=== PATIENT | male | born 1965 | race Caucasian/White ===

== ENCOUNTER 2023-10-14 15:50 | Outpatient (RCR) | payer BC ==
[~2023-10-14 15:50] MED LIST: 00186-0370-20 IH; ASPIRIN E.C. 8181 MG PO; BENADRYL ALLERG25 M2 PO; CELEXA 20MG20 MG/TAB PO; CIPRO 500MG TA500 MG PO; ENTRESTO 24 MG1 EACH PO; EPIPEN 2-PAK1 MG/ML INJ; FARXIGA10 PO; FLEXERIL 1010 MG/TAB PO; K-TAB20 PO; LASIX 40MG TABL40 MG PO; LOPRESSOR 550 MG/TAB; OXYGEN NASAL.CANN; PLAVIX 75MG TAB75 MG PO; PREDNISONE 5MG5 MG PO; PREDNISONE10 MG PO; PRINZIDE 12.5 M1 TA1 PO; TESSALON P100 MG/CAP PO; TOPROL XL 50MG50 MG PO; TYLENOL 325MG325 MG PO; TYLENOL 8 HR PO; VENTOLIN0.09 MG IH
== END 2023-10-24 | disposition home or self-care (01) ==
LOC: COL.CR
DX: I27.20 Pulmonary hypertension, unspecified (principal)
CPT/HCPCS: G0239

== ENCOUNTER 2024-02-05 13:10 | Inpatient (IN) | payer BC ==
[~2024-02-05] VITALS: Ht 177.8 cm; Wt 237.0 kg
[2024-02-05] VITALS (21 sets, daily range): BP systolic 115–126; BP diastolic 69–79; PULSE 70–75; TEMP 97.8; O2SAT 90–97
[~2024-02-05 13:10] MED LIST changes: -ENTRESTO 24 MG1 EACH PO; +ENTRESTO 49 MG1 EACH PO
[2024-02-05] MEDS ORDERED: Azithromycin 500 MG in NS 250 ML IV ONE (13:45)
[2024-02-05] MEDS ORDERED: methylPREDNISolone Sod Succ 125 MG/2 ML VIAL IV ONE (13:45)
[2024-02-05] MEDS ORDERED: cefTRIAXone 1 G in Water For Injection,Sterile 10 ML IV ONE (13:45)
[2024-02-05] MEDS ORDERED: Albuterol/Ipratropium 3 MG-0.5 MG/3 ML Neb Soln IH ONE (13:45)
[2024-02-05 13:50] LABS: BASO % 0.4 % (0.0-2.0); EOS # 0.1 K/mm3 (0.0-0.7); EOS % 0.8 % (0.0-4.0); GRAN # 5.7 K/mm3 (1.4-6.5); GRAN % 74.2 % (42.2-75.2); HEMATOCRIT 51.1 % (42.0-52.0); HEMOGLOBIN 14.9 g/dl (13.5-18.0); LYMPH # 1.2 K/mm3 (1.2-3.4); MEAN CELL VOLUME 92 fl (80.0-100.0); MEAN CORPUSCULAR HEMOGLOBIN 27 pg (27-31); MEAN CORPUSCULAR HGB CONC 29 g/dl (33.0-37.0); MEAN PLATELET VOLUME 9.9 fl (7.4-10.4); MONO # 0.7 K/mm3 (0.1-0.6); PLATELET COUNT 270 K/mm3 (130-400); RED BLOOD COUNT 5.57 M/mm3 (4.20-5.60); REDCELL DISTRIBUTION WIDTH-CV 15.4 % (11.5-14.5)
[2024-02-05 14:10] LABS: ALBUMIN 3.4 gm/dL (3.5-5.0); BILIRUBIN,TOTAL 0.6 mg/dL (0.2-1.2); CALCIUM 9.5 mg/dL (8.4-10.2); CREATININE, serum 1.59 mg/dL (0.72-1.25); POTASSIUM 5.1 mmol/L (3.5-4.5); TOTAL PROTEIN 7.5 gm/dL (6.2-8.1)
[2024-02-05 14:52] LABS: ARTERIAL BLD GAS O2 SATURATION 95.6 % (92-100); ARTERIAL BLD GAS TCO2 CT 31.5; ARTERIAL BLOOD GAS BASE EXCESS -1.4 (-2-2); ARTERIAL BLOOD GAS HCO3 29.1 meq/L (22-26); ARTERIAL BLOOD GAS PO2 92.6 mmHg (80-100)
[2024-02-05 14:54] LABS: ARTERIAL BLOOD GAS pH 7.19 (7.35-7.45)
[2024-02-05] MEDS ORDERED: Rocuronium 50 MG/5 ML Multi-Dose VIAL IV ONE (15:15)
[2024-02-05] MEDS ORDERED: Etomidate 20 MG/10 ML VIAL IV ONE (15:15)
[2024-02-05 16:25] LABS: ARTERIAL BLD GAS TCO2 CT 24.5; ARTERIAL BLOOD GAS BASE EXCESS -2.1 (-2-2); ARTERIAL BLOOD GAS HCO3 23.2 meq/L (22-26); ARTERIAL BLOOD GAS PO2 89.3 mmHg (80-100); ARTERIAL BLOOD GAS pH 7.36 (7.35-7.45)
[2024-02-05 16:32] LABS: PH 5.5 (5.0-8.5); URINE APPEARANCE CLEAR (CLEAR/HAZY); URINE BLOOD NEGATIVE (NEGATIVE); URINE COLOR Dark Yellow (YELLOW); URINE GLUCOSE 3+ (NEGATIVE); URINE KETONE NEGATIVE (NEGATIVE); URINE NITRATE NEGATIVE (NEGATIVE); URINE PROTEIN(semi-quant) 2+ (NEGATIVE)
[2024-02-05 16:48] LABS: COLLECTION METHOD CLEAN CATCH
[2024-02-05] MEDS ORDERED: Furosemide 40 MG/4 ML VIAL IV SCH (17:15)
[2024-02-05] MEDS ORDERED: Ondansetron 4 MG/2 ML VIAL IV PRN (17:15)
[2024-02-05] MEDS ORDERED: Cefepime 2 G in Water For Injection,Sterile 20 ML IV SCH (17:15)
[2024-02-05] MEDS ORDERED: Albuterol/Ipratropium 3 MG-0.5 MG/3 ML Neb Soln IH PRN (17:15)
[2024-02-05] MEDS ORDERED: dexAMETHasone 10 MG/ML VIAL IV SCH (17:15)
[2024-02-05] MEDS ORDERED: ALDACTONE 25MG25 M1 PO (17:48)
[2024-02-05] MEDS ORDERED: KLOR-CON20 MEQ PO (17:49)
[2024-02-05] MEDS ORDERED: TESSALON P100 MG/CAP PO (17:51)
[2024-02-05] MEDS ORDERED: BREZTRI AEROS10.7 GM IH (17:52)
[2024-02-05] MEDS ORDERED: Budesonide/Glycopyrrolate/Formoterol **** subs to Budesonide + Umeclid/Vilant IH SCH (17:55)
--- NOTE | 2024-02-05 17:58 | NUR ---
Arrived to the unit from ED. Assisted over to ICU bed and required 5 people due to patient's size. VS stable upon arrival. Patient does not follow commands but does move extremities with discomfort. Will continue to monitor.
[2024-02-05] MEDS ORDERED: Metoprolol Tartrate 5 MG/5 ML VIAL IV SCH (18:00)
[2024-02-05] MEDS ORDERED: Glucagon 1 MG VIAL IM PRN (18:15)
[2024-02-05] MEDS ORDERED: Dextrose (Glucose) 15 GM (4 x 3.75 GM) Chewable TABLET PACK PO PRN (18:15)
[2024-02-05] MEDS ORDERED: Dextrose 50% Water 25 GM/50 ML SYRINGE IV PRN (18:15)
[2024-02-05] MEDS ORDERED: Budesonide Neb Susp 0.5 MG/2 ML AMP IH SCH (19:00)
--- NOTE | 2024-02-05 19:00 | NUR ---
REPORT RECEIVED FROM AMENA BURGOS. PATIENT INTUBATED AND SEDATED. ON PROPOFOL AND FENTANYL VIA CENTRAL LINE. SEE DRIP TITRATION FOR RATE
[2024-02-05] MEDS ORDERED: fentaNYL 100 ML IV SCH (19:30)
--- NOTE | 2024-02-05 19:41 | NUR ---
PT JADIEL VENT SETTINGS, VITALS ARE WNL. ETT IS SECURE. VENT WHEELS ARE LOCKED AND PT REMAINS RESTRIANED BILAT. SPUTUM CULTURE OBTAINED
[2024-02-05] MEDS ORDERED: Albuterol/Ipratropium 3 MG-0.5 MG/3 ML Neb Soln IH SCH (20:00)
[2024-02-05] MEDS ORDERED: Insulin Lispro (HumaLOG) SQ SCH (21:00)
--- NOTE | 2024-02-05 22:15 | NUR ---
FIO2 TITRATED TO 70%, DUE TO PT DESAT 88%.
[2024-02-06] VITALS (460 sets, daily range): BP systolic 76–165; BP diastolic 37–98; PULSE 68–89; TEMP 98.1–98.8; O2SAT 89–100
[2024-02-06] MEDS ORDERED: Albuterol/Ipratropium 3 MG-0.5 MG/3 ML Neb Soln IH SCH
--- NOTE | 2024-02-06 00:09 | NUR ---
PT TITRATED TO 65%, PT JADIEL WELL.
[2024-02-06 04:39] LABS: HEMOGLOBIN 13.6 g/dl (13.5-18.0); MEAN CORPUSCULAR HEMOGLOBIN 26 pg (27-31); MEAN CORPUSCULAR HGB CONC 31 g/dl (33.0-37.0); MEAN PLATELET VOLUME 10.2 fl (7.4-10.4); PLATELET COUNT 239 K/mm3 (130-400); REDCELL DISTRIBUTION WIDTH-CV 14.7 % (11.5-14.5)
[2024-02-06 04:41] LABS: INR 1.4 (0.8-3.0); PROTHROMBIN TIME 15.2 SECONDS (9.7-12.8)
[2024-02-06 04:44] LABS: MEAN CELL VOLUME 85 fl (80.0-100.0)
[2024-02-06 04:48] LABS: ARTERIAL BLD GAS O2 SATURATION 96.5 % (92-100); ARTERIAL BLD GAS TCO2 CT 24.2; ARTERIAL BLOOD GAS BASE EXCESS 0.8 (-2-2); ARTERIAL BLOOD GAS HCO3 23.3 meq/L (22-26); ARTERIAL BLOOD GAS PCO2 31.4 mmHg (35-45); ARTERIAL BLOOD GAS PO2 82.2 mmHg (80-100); ARTERIAL BLOOD GAS pH 7.49 (7.35-7.45)
[2024-02-06 04:51] LABS: ALBUMIN 2.9 gm/dL (3.5-5.0); BILIRUBIN,TOTAL 1.1 mg/dL (0.2-1.2); CREATININE, serum 1.6 mg/dL (0.72-1.25); POTASSIUM 4.3 mmol/L (3.5-4.5); TOTAL PROTEIN 5.9 gm/dL (6.2-8.1)
[2024-02-06 05:31] LABS: BAND 5 % (0-10); LYMPHOCYTE 5 % (20.0-51.0); NEUTROPHILS 87 % (42.0-75.2); PLATELET ESTIMATE NORMAL (NORMAL)
--- NOTE | 2024-02-06 07:30 | NUR ---
Head to toe assessment complete. Pt easily awakens with verbal or tactile stimulation - initially pt opening eyes and follows commands, then pt became restless. Elsa ([id number]) called in - update provided - all questions answered. Lines and tubes traced and stable.
[2024-02-06] MEDS ORDERED: Umeclidinium/Vilanterol 62.5-25 MCG INHALATION/INHALER IH SCH (09:00)
--- NOTE | 2024-02-06 10:36 | NUR ---
tea plantation worker spoke with patient's daughter in law, Elsa Casey [phone]. Elsa states that patient privately pays for BCBS and that Dr Lonnie Bess's office has a copy. Elsa states they cannot find patients BCBS card. Elsa stated that patient will need rehab. Worker provided education acute and skilled rehab and how it is paid. Elsa states that her has business power of estate attorney and access to bank account data. Worker gave [employer]mu Hunter (financial counselors number) and requested that she call [employer] and secure bank information for medicaid application, as that would be the payor source for nursing facility care, if needed. Worker collaborated with patient's executive secretary social welfare, Aracelis regarding the above information.
--- NOTE | 2024-02-06 10:45 | NUR ---
castables worker met with pt's son/DPOA-HC, Melecio [phone] to discuss intake and discharge planning. Melecio reports he and his , Laverne are DPOA-HC. SW verified copy on file. He reports patient lives alone in [place], but previously lived with Melecio and his family in [place] with Home Health services. Melecio states pt sees Dr. Emery and obtains medications from [facility] with no noted difficulity; he reports pt always finds a way even when they are expensive. He reports pt as having FWW, cane, and oxygen for 24 hrs/day, but does not use it and did not know the company. Melecio went on to express concerns regarding pt's living situation and needing rehab. He informed SW that the home is a hoarding situation with mold, bugs, animal feces (animals removed), and rotten food. Melecio states pt is unable to shower on his own and this is only done when Melecio is able to assist and this is hard due to pt's weight. He reports pt is only showered about once a week, if that, and it is not sufficient. He states pt has declining health, mobility issues, and is unsafe in the home. Son reports pt cannot move around the home well due to the clutter and usually does not make it to the bathroom in an adequate amount of time. He uses adult diapers and does not change them often enough so he is exposed to his own incontinences. Son states pt typically sits on the recliner in the home and has food items within reach there as he is unable to cook. He informs SW the only thing he can do independently is get dressed. Melecio reports he comes over many times a week, but this care is not enough and he is the only family nearby able and willing to help. Melecio reports things as better when pt lived with him and participated with . He states pt is resistive to help cleaning the home and it is only day about once a year, each time pt is in the hospital is all pt allows. SW discussed PT/OT seeing patient when able and making reccomendations likely for SNF vs LTC. Melecio reports he thinks pt pays into an insurance, but is unsure what it is called or where to locate it. SW advised she notified president financial institution, [employer] to work with them to complete FAA/Medicaid application. Melecio was agreeable and even stated pt was tasked to work on the Medicaid application, but he does not know if it was ever done. LUCIE advised they will likely need to work to obtain bank statements and this can take some time. LUCIE discussed if patient was able to return with Melecio. Melecio reports he recently had an daughter and there are no rooms, but worst case scenario, he "would make it work." LUCIE advised she would follow along for any needs and provided phone number. LUCIE spoke with [employer], president financial institution regarding self pay status. She reports she will look into this. LUCIE made APS intake [id number] due to self neglect, unsafe living situation, non-compliance with medical reccs, and inability to care for self. LUCIE spoke with Dr. Avery and had PT/OT orders placed. LUCIE left voicemail to [facility] on [facility]ging contactRee regarding information on waiver services for pt and family need. PT/OT pending as pt is intubated Discharge Plan: TBD, likely LTC vs SNF
--- NOTE | 2024-02-06 13:39 | NUR ---
electrical line worker recieved a call from [facility] on Aging, Ree returning call regarding waivers. She advised the Frail/Elderly waiver would not apply as all criterias are needed and pt is under 65. She advised there is a physical disability waiver for ages 16-64, but there is a year to two year waiting list. She reports the criteria as: 6 months or less to live, active APS report, and likely to end up in a care home past 3 months to escalate services to transition back to the community. She informed SW that morbid obesity could qualify as a physical disability if he was recieving SSDI. LUCIE was unsure at this time, but does not feel pt meets these criterias at this time. No active APS case open, not yet projected to be in a care home, and living with son would qualify as having a caregiver.
[2024-02-06] MEDS ORDERED: Azithromycin 500 MG in NS 250 ML IV SCH (14:00)
[2024-02-06 14:34] LABS: ARTERIAL BLD GAS O2 SATURATION 94.9 % (92-100); ARTERIAL BLD GAS TCO2 CT 26.6; ARTERIAL BLOOD GAS HCO3 25.4 meq/L (22-26); ARTERIAL BLOOD GAS PCO2 39.8 mmHg (35-45); ARTERIAL BLOOD GAS PO2 78.2 mmHg (80-100); ARTERIAL BLOOD GAS pH 7.42 (7.35-7.45)
--- NOTE | 2024-02-06 16:13 | NUR ---
hand worker spoke with Pham Rodrigues, screening representative with [facility] facilities to discuss patient's weight status as a barrier if needing SNF/LTC. She reports [facility] not being able to accept if the wheelchair used is 26 inches or bigger as that is the size of their doorway. She informed SW that they [facility] could potentially be more suitable. She suggests waiting until pt is extubated and more stable before sending referral. Discharge Plan: [email or web address]
--- NOTE | 2024-02-06 17:00 | NUR ---
Bedside report and handoff performed with AMENA Dowling
--- NOTE | 2024-02-06 19:00 | NUR ---
REPORT RECEIVED FROM AMENA SUAREZ. PATIENT INTUBATED AND SEDATED WITH LEVOPHED ON STANDBY. SEE DRIP TITRATION FOR SHIFT CHANGE RATES. PLANS FOR BREATHING TRIAL TOMORROW
[2024-02-07] VITALS (585 sets, daily range): BP systolic 79–121; BP diastolic 39–70; PULSE 71–95; TEMP 97.8–98.8; O2SAT 52–100
[2024-02-07 04:48] LABS: BASO % 0.1 % (0.0-2.0); GRAN # 10.4 K/mm3 (1.4-6.5); GRAN % 86.5 % (42.2-75.2); HEMATOCRIT 42.2 % (42.0-52.0); HEMOGLOBIN 13.6 g/dl (13.5-18.0); LYMPH # 0.7 K/mm3 (1.2-3.4); LYMPH % 5.9 % (20.0-51.0); MEAN CELL VOLUME 84 fl (80.0-100.0); MEAN CORPUSCULAR HEMOGLOBIN 27 pg (27-31); MEAN CORPUSCULAR HGB CONC 32 g/dl (33.0-37.0); MEAN PLATELET VOLUME 10.1 fl (7.4-10.4); MONO # 0.9 K/mm3 (0.1-0.6); MONO % 7.2 % (1.7-9.3); PLATELET COUNT 268 K/mm3 (130-400); RED BLOOD COUNT 5.05 M/mm3 (4.20-5.60); REDCELL DISTRIBUTION WIDTH-CV 14.7 % (11.5-14.5)
[2024-02-07 04:54] LABS: INR 1.3 (0.8-3.0); PROTHROMBIN TIME 14.1 SECONDS (9.7-12.8)
[2024-02-07 05:12] LABS: ALBUMIN 2.7 gm/dL (3.5-5.0); BILIRUBIN,TOTAL 0.9 mg/dL (0.2-1.2); CALCIUM 8.7 mg/dL (8.4-10.2); CREATININE, serum 1.65 mg/dL (0.72-1.25); POTASSIUM 4.3 mmol/L (3.5-4.5); TOTAL PROTEIN 5.7 gm/dL (6.2-8.1)
[2024-02-07 05:48] LABS: ARTERIAL BLOOD GAS BASE EXCESS 5.4 (-2-2); ARTERIAL BLOOD GAS HCO3 27.9 meq/L (22-26); ARTERIAL BLOOD GAS PCO2 34.5 mmHg (35-45); ARTERIAL BLOOD GAS PO2 90.8 mmHg (80-100); ARTERIAL BLOOD GAS pH 7.53 (7.35-7.45)
--- NOTE | 2024-02-07 08:02 | NUR ---
PATIENT IS ON VENTILATOR, ETT TUBE AT 24 CM AT THE TEETH, 30% FIO2, 525 TIDAL, 18 RR, AND 5 PEEP. SEDATION AT 5 ML/HR FENTANYL, 69.6 ML/HR OF PROPOFOL, LEVOPHED AT 8.7 ML/HR. ALL FLUIDS INFUSING WITHOUT COMPLICATION, EPPERSON IS DRAINING CLEAR ISAMAR URINE, 300 ML AT 08 THIS MORNING. FOLLOWS SOME COMMANDS, PUPILS 2MM, REACTIVE, EQUAL AT THIS TIME. AFEBRILE, BLOOD PRESSURE 104/59, 89 HR, 99% O2 SATURATION. PATIENT APPEARS TO BE RESTING, EYES CLOSED UNTIL PROPMPTED, LUNGS SOUNDS ARE DISTANT, DIMINISHED IN THE BASES, CLEAR UPPER LOBES. WILL CONTINUE TO MONITOR FOR SIGNIFICANT CHAGNES.
--- NOTE | 2024-02-07 13:22 | NUR ---
PATIENT WAS EXTUBATED AT 1255 ON 02/07/24. RT SUCTIONED ORALLY AND INLINE BEFORE EXTUBATION. PATIENT IS ON 5LPM WITH 96% O2 SATURATION. PATIENT IS RESTING COMFORTABLY AND TALKING WITH FAMILY.
[2024-02-07] MEDS ORDERED: Citalopram 20 MG TAB PO SCH (15:42)
--- NOTE | 2024-02-07 17:54 | NUR ---
WEANING TRIAL STARTED AT 1030, CPAP SETTINGS WERE UNSUCCESSFUL, THEREFORE WE SWITCHED TO SIMV WITH LOWERED SETTINGS. WITHIN TWO HOURS, PT WAS ABLE TO TAKE EFFECTIVE SPONTANEOUS BREATHES WITHOUT COMPLICATION AND WE WERE ABLE TO EXTUBATE HIM AT 1255. PATIENT FOLLOWED COMMANDS APPROPRIATELY, NO SEDATION ON BOARD. AT THIS TIME HE IS DRINKING, EATING AND SWALLOWING WITHOUT DIFFICULTY. WILL CONTINUE TO EVALUATE BREATHING EFFORTS AND O2 SATURATION LEVELS.
[2024-02-07] MEDS ORDERED: LORazepam 0.5 MG TAB PO ONE (20:45)
--- NOTE | 2024-02-07 20:46 | NUR ---
PT RESTING COMFORTABLY IN BED, DENIES PAIN. IS ABLE TO REPOSITION SELF IN BED USING TRAPEZE OVER BED. CURRENTLY ON 6L O2 VIA NC, ENCOURAGED TO PRACTICE DEEP BREATHING. PROVIDER WANTS PT TO USE BIPAP OVER NIGHT, PT HAS EXPRESSED CONCERN ABOUT MACHINE. DID NOT TOLERATE PREVIOUSLY, ASKED FOR SOMETHING TO HELP WITH ANXIETY. ORDER RECEIVED FOR ATIVAN 0.5 MG TIMES ONE, PT AGREEABLE TO TRY BIPAP. RT AWARE, WILL NOTIFY WHEN PT READY TO SLEEP.
[2024-02-08] VITALS (871 sets, daily range): BP systolic 102–143; BP diastolic 49–87; PULSE 80–93; TEMP 98–99.5; O2SAT 71–100
[2024-02-08 04:50] LABS: BASO % 0.1 % (0.0-2.0); GRAN # 9.2 K/mm3 (1.4-6.5); GRAN % 84.8 % (42.2-75.2); HEMATOCRIT 43.4 % (42.0-52.0); HEMOGLOBIN 13.5 g/dl (13.5-18.0); LYMPH # 0.7 K/mm3 (1.2-3.4); LYMPH % 6.2 % (20.0-51.0); MEAN CELL VOLUME 87 fl (80.0-100.0); MEAN CORPUSCULAR HEMOGLOBIN 27 pg (27-31); MEAN CORPUSCULAR HGB CONC 31 g/dl (33.0-37.0); MEAN PLATELET VOLUME 10.2 fl (7.4-10.4); MONO # 0.9 K/mm3 (0.1-0.6); MONO % 8.6 % (1.7-9.3); PLATELET COUNT 256 K/mm3 (130-400); RED BLOOD COUNT 5.02 M/mm3 (4.20-5.60)
[2024-02-08 04:57] LABS: INR 1.2 (0.8-3.0); PROTHROMBIN TIME 13.4 SECONDS (9.7-12.8)
[2024-02-08 05:07] LABS: BILIRUBIN,TOTAL 1.1 mg/dL (0.2-1.2); CALCIUM 7.9 mg/dL (8.4-10.2); CREATININE, serum 1.51 mg/dL (0.72-1.25); POTASSIUM 4.6 mmol/L (3.5-4.5); TOTAL PROTEIN 6.2 gm/dL (6.2-8.1)
--- NOTE | 2024-02-08 07:00 | NUR ---
Report recieved from AMENA Dawson. Reviewed overnight events. Pt has no IVF gtts infusing. Labs reviewed. Pt resting in bed with eyes closed. Call light within reach. Will continue with POC.
--- NOTE | 2024-02-08 08:44 | NUR ---
Pt up to chair for breakfast. Pt up with assistance of 2 and walker. PT in room at time of movement. Pt tolerated shift without difficulty. Call light within reach.
[2024-02-08] MEDS ORDERED: diphenhydrAMINE 25 MG CAP PO ONE (10:30)
--- NOTE | 2024-02-08 13:44 | NUR ---
Data: Hospital Supervisor Pastry requested On-call Supervisor Pastry visit this Patient. Patient was in a recliner, trying to adjust it for comfort so that he can nap. Patient was hoping to put in a garden this year, but will now likely plan next year's garden instead. 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 Patient's of cancer in 2013. Assessment: Patient desires a nap. Patient speaks of the loss of his in a manner suggesting that he is both grieving and still in his bereavement process. Plan of Care: Supervisor Pastry requested assistance from the RN in adjusting the chair for Patient's comfort and thus a nap. Supervisor Pastry provided supportive listening and prayer.
--- NOTE | 2024-02-08 18:28 | NUR ---
Pt had uneventful shift. Pt sat up in chair most of day. Up with walker to use commode. When awake pt is on 3L NC and tolerating well. When pt sleeps, placed on 5L open oxy mask. Pt was offered bipap once during shift for nap but pt refused. Call light within reach. Denies any other needs at this time.
--- NOTE | 2024-02-08 20:18 | NUR ---
PT IS RESTING IN THE CHAIR AT THE SIDE OF THE BED. HE IS ALERT AND ORIENTED. ON 5L OXYMASK. A DRAINING EPPERSON CATHETER IS IN PLACE. A RIGHT SUBCLAVIAN CENTRAL LINE AND 2 PERIPHERAL IV SITES. EYE GLASSES IN PLACE. NO COMPLAINTS AT THIS TIME.
[2024-02-09] VITALS (626 sets, daily range): BP systolic 108–132; BP diastolic 65–84; PULSE 68–88; TEMP 97.7–98.3; O2SAT 66–100
--- NOTE | 2024-02-09 01:00 | NUR ---
PLACED PATIENT ON BIPAP
--- NOTE | 2024-02-09 07:59 | NUR ---
PATIENT IS PLEASANT THIS MORNING AND DOES NOT APPEAR TO BE IN DISTRESS OR DISCOMFORT. PATIENT IS ALERT AND ORIENTED AND DENIES ANY PAIN. PATIENT AMBULATED TO RECLINER [facility] ASSIST. CHAIR ALARM IN USE AND CALL LIGHT WITHIN REACH. PATIENT DOES NOT NEED ANYTHING AT THIS TIME.
--- NOTE | 2024-02-09 12:36 | NUR ---
PATIENT VOICED CONCERN WITH RN AND DAIRY TECHNOLOGIST THAT HE FEELS "I DONT KNOW THAT I SHOULD GO HOME YET BECAUSE MY SON IS SUPPOSED TO BE RIPPING UP THE CARPET SOON. IM WORRIED THAT THE DUST IS GOING TO AFFECT MY BREATHING WHEN HE DOES THAT".
--- NOTE | 2024-02-09 15:06 | NUR ---
This SW informed that patient will be able to discharge tomorrow 02/10/2024 when Bipap is set up for home. Nurse informed SW that patient states he has concerns about being discharged home due to cson pulling up carpet which will produce dust and cause patient to be unable to breath efficiently. SW informed nurse that she would pass information on to case management team. SW will continue to follow.
--- NOTE | 2024-02-09 16:39 | NUR ---
Previous plan consisted of patient returning home with bipap set up. SW completed electronic chart reviewed that consisted of physical therapy recommending nursing home. Dr. Avery informed and was not aware of recommendation and house nurse informed as well and plan is for patient to go to medical floor for further assessesment.
--- NOTE | 2024-02-09 18:24 | NUR ---
PATIENT TRANSFERRED TO MEDICAL FLOOR AT THIS TIME. PATIENT REPORT CALLED TO AMENA CHAVEZ, BEFORE TRANSFER. PATIENT AND INSPECTION AND TESTING SUPERVISOR HAD CONVERSATION ABOUT PHYSICAL THERAPY RECOMMENDING SENIOR CARE FOR A LITTLE BIT AND PATIENT AGREED THAT THIS WOULD BE A GOOD IDEA. PATIENT WAS NOT IN DISTRESS UPON TRANSFER. INSPECTION AND TESTING SUPERVISOR HELPED PATIENT SHOWER ON MEDICAL AFTER MOVING TO NEW ROOM.
[2024-02-09] MEDS ORDERED: diphenhydrAMINE 50 MG/ML 1 ML VIAL IV ONE (19:30)
[2024-02-10] VITALS (7 sets, daily range): BP systolic 100–150; BP diastolic 50–82; PULSE 74–106; TEMP 96.7–98.3
[2024-02-10 08:10] LABS: CALCIUM 8.3 mg/dL (8.4-10.2); CREATININE, serum 1.41 mg/dL (0.72-1.25); POTASSIUM 4.8 mmol/L (3.5-4.5)
--- NOTE | 2024-02-10 09:00 | NUR ---
Patient is resting in bed, alert and oriented x 4, denies any pain or discomfort, getting 2L O2 NC. Assessted to the restroom with walker. Linens changed. Assessment completed, no further needs at this time. Call light within reach.
[2024-02-10] MEDS ORDERED: Hydrocortisone 1% Cream 30 GM TUBE TP PRN (09:15)
[2024-02-10] MEDS ORDERED: NS 1,000 ML IV SCH (09:15)
[2024-02-10] MEDS ORDERED: Sodium Polystyrene Sulf Susp 15 GM/60 ML BOTTLE PO SCH (09:30)
--- NOTE | 2024-02-10 11:42 | NUR ---
SW spoke with Pham Rodrigues with [facility] facilities who requested referral documents be faxed to [phone] for review. Discussed [facility] in [place]. Clinicals faxed. Medicare.gov information provided to patient for review for choices. Discussed limited availability due to patient's weight restrictions.
--- NOTE | 2024-02-10 14:55 | NUR ---
SNF referrals sent to the following: [facility] in [place], [facility], [facility], [facility], [facility], [facility], [facility], [facility], [facility], [facility], [facility], [facility], [facility], [facility]. Awaiting responses. Discharge: SNF
--- NOTE | 2024-02-10 15:50 | NUR ---
Received call from [facility] in [place] wanting to verify clinical information from referral. Clinical team is reviewing referral and will contact this SW with decision on acceptance.
[2024-02-11 03:50] VITALS: BP 130/76; PULSE 101; TEMP 98.2
[2024-02-11 06:09] LABS: BASO % 0.1 % (0.0-2.0); GRAN # 5.9 K/mm3 (1.4-6.5); GRAN % 79.1 % (42.2-75.2); HEMATOCRIT 44.2 % (42.0-52.0); HEMOGLOBIN 12.9 g/dl (13.5-18.0); LYMPH # 0.7 K/mm3 (1.2-3.4); LYMPH % 9.9 % (20.0-51.0); MEAN CELL VOLUME 91 fl (80.0-100.0); MEAN CORPUSCULAR HEMOGLOBIN 26 pg (27-31); MEAN CORPUSCULAR HGB CONC 29 g/dl (33.0-37.0); MEAN PLATELET VOLUME 10.1 fl (7.4-10.4); MONO # 0.8 K/mm3 (0.1-0.6); MONO % 10.4 % (1.7-9.3); PLATELET COUNT 222 K/mm3 (130-400); RED BLOOD COUNT 4.88 M/mm3 (4.20-5.60); REDCELL DISTRIBUTION WIDTH-CV 14.6 % (11.5-14.5)
[2024-02-11 06:28] LABS: CALCIUM 8.1 mg/dL (8.4-10.2); CREATININE, serum 1.12 mg/dL (0.72-1.25); POTASSIUM 4.5 mmol/L (3.5-4.5)
[2024-02-11 07:36] VITALS: BP 121/74; PULSE 79; TEMP 98.5
--- NOTE | 2024-02-11 08:51 | NUR ---
pt assisted to bathroom by student nurses. void and bowel movement normal. student nurse noted redness to innergluteal fold while performing vitaly care.
[2024-02-11] MEDS ORDERED: dexAMETHasone 4 MG TAB PO SCH (09:00)
--- NOTE | 2024-02-11 09:41 | NUR ---
BIPAP ON NOW REQUESTED BY PATIENT.
--- NOTE | 2024-02-11 11:05 | NUR ---
PATIENT LEAK OF 90, ADJUSTED MASK TO LEAK OF 19.
[2024-02-11 12:58] VITALS: BP 106/65; PULSE 94; TEMP 97.8
--- NOTE | 2024-02-11 14:41 | NUR ---
feed elevator worker left a voicemail for [facility], [facility] in [place], [facility] in [place] and [facility] in [place]. LUCIE was notified [facility], [facility], [facility], [facility], [facility] and [facility] is unable to accept. LUCIE faxed Medicaid Uday to [facility]. LUCIE attempted to contact [facility] in [place], no response. LUCIE contacted [facility] and they are willing to review the referral and expressed they can take patients under 600 lbs. LUCIE faxed referral to this facility.
--- NOTE | 2024-02-11 16:04 | NUR ---
SW contacted [facility] and they expressed they would review the information and get back with the social insurance adviser. SW faxed referral. Update on Referral: Pending review: [facility], [facility], [facility], [facility], [facility], [facility] Voicemail: [facility], [place], [facility], [facility] [place], [facility], [facility], [facility], [facility] [place], [facility] [place], [facility] [place], [facility] in [place] Unable to accept: [facility], [facility], [facility], [facility] in [place], [facility], [facility], [facility], [facility], [facility] in [place]
[2024-02-11 16:06] VITALS: BP 138/81; PULSE 87; TEMP 98.2
--- NOTE | 2024-02-11 16:31 | NUR ---
Multiple phone calls made to SNF for rehab placement without success. SW called pt's daughter in law Elsa to request a family meeting tomorrow for discharge planning discussion with patient. Meeting scheduled for 814 tomorrow.
[2024-02-11 20:10] VITALS: BP 135/74; PULSE 90; TEMP 97.5
[2024-02-11 23:28] VITALS: BP 157/74; PULSE 72; TEMP 98.5
[2024-02-12 03:26] VITALS: BP 157/74; PULSE 72; TEMP 98.8
[2024-02-12 07:14] LABS: BASO % 0.1 % (0.0-2.0); EOS % 0.5 % (0.0-4.0); GRAN # 5.4 K/mm3 (1.4-6.5); GRAN % 71.9 % (42.2-75.2); HEMATOCRIT 42.6 % (42.0-52.0); HEMOGLOBIN 12.8 g/dl (13.5-18.0); LYMPH # 1.1 K/mm3 (1.2-3.4); LYMPH % 13.9 % (20.0-51.0); MEAN CELL VOLUME 89 fl (80.0-100.0); MEAN CORPUSCULAR HEMOGLOBIN 27 pg (27-31); MEAN CORPUSCULAR HGB CONC 30 g/dl (33.0-37.0); MEAN PLATELET VOLUME 10.1 fl (7.4-10.4); MONO % 13.1 % (1.7-9.3); PLATELET COUNT 208 K/mm3 (130-400); RED BLOOD COUNT 4.81 M/mm3 (4.20-5.60); REDCELL DISTRIBUTION WIDTH-CV 14.2 % (11.5-14.5)
[2024-02-12 07:43] LABS: CALCIUM 9.1 mg/dL (8.4-10.2); CREATININE, serum 0.99 mg/dL (0.72-1.25); POTASSIUM 4.5 mmol/L (3.5-4.5)
[2024-02-12 07:44] VITALS: BP 136/80; PULSE 89; TEMP 97.9
[2024-02-12] MEDS ORDERED: dexAMETHasone 4 MG TAB PO SCH (09:00)
[2024-02-12 09:32] LABS: ARTERIAL BLOOD GAS PCO2 62.7 mmHg (35-45); ARTERIAL BLOOD GAS pH 7.32 (7.35-7.45)
[2024-02-12 09:33] LABS: ARTERIAL BLD GAS O2 SATURATION 96.1 % (92-100); ARTERIAL BLD GAS TCO2 CT 18.7; ARTERIAL BLOOD GAS BASE EXCESS 3.9 (-2-2); ARTERIAL BLOOD GAS HCO3 31.8 meq/L (22-26); ARTERIAL BLOOD GAS PO2 77.7 mmHg (80-100)
--- NOTE | 2024-02-12 09:45 | NUR ---
SW attended rounds with interdisciplinary team. Patient reported to have not worn bipap overnight resulting in increased confusion today. Patient not stable for dc today. Discussed possible LTACH referral with attending who is in agreement. CM Director spoke with daughter in law who agreed to referrals being sent. This SW [facility] with [facility] at [facility], they are reviewing for possible acceptance. Referral emailed to Richard at [facility]. Awaiting review. Discharge Plan: IPR vs LTACH
--- NOTE | 2024-02-12 10:14 | NUR ---
Received call from Colette with [facility] asking for updated progress notes and therapy notes. Notes faxed for review. Received call from Richard with [facility] stating patient appropriate for admission and he is submitted for authorization with BCBS which could be 24-48 hours.
[2024-02-12 12:00] VITALS: BP 143/77; PULSE 78; TEMP 98.6
--- NOTE | 2024-02-12 12:36 | NUR ---
Received call from Colette with [facility] stating patient is still being reviewed for admission. Colette stated she has spoken with patient's son regarding plan for post rehab care. Received call from Pham with [facility] stating that pt is accepted clinically but will require authorization. Informed Pham that patient is awaiting auth for LTACH at this time. This SW spoke with patient's daughter in law Laverne to update on referrals. Informed that we are waiting on insurance authorization for LTACH with [facility] and that [facility] is continuing to review clinicals. Laverne states that they are hopeful that patient will be able to return home after rehab.
[2024-02-12 16:00] VITALS: BP 137/85; PULSE 87; TEMP 97.9
[2024-02-12 19:14] VITALS: BP 130/73; PULSE 88; TEMP 97.6
--- NOTE | 2024-02-12 22:40 | NUR ---
Patient resting in bed. Denies any pain or needs at this time. Assessment complete. Right IJ flushes easily with good blood return in all ports, CDI. Call light and personal items in reach. Bed in low position.
[2024-02-13] VITALS: BP 118/73; PULSE 78; TEMP 97.5
[2024-02-13 04:39] VITALS: BP 130/76; PULSE 80; TEMP 98.2
--- NOTE | 2024-02-13 05:50 | NUR ---
Patient resting in bed. Denies any pain. States he feels a little itchy, lotion applied to back and states that made it go away. Patient wore Bipap over night. No other changes over night. Call light and personal items in reach. Bed in low position.
[2024-02-13 06:52] LABS: BASO % 0.1 % (0.0-2.0); EOS # 0.1 K/mm3 (0.0-0.7); GRAN % 71.6 % (42.2-75.2); HEMATOCRIT 42.5 % (42.0-52.0); HEMOGLOBIN 12.6 g/dl (13.5-18.0); LYMPH % 14.5 % (20.0-51.0); MEAN CELL VOLUME 90 fl (80.0-100.0); MEAN CORPUSCULAR HEMOGLOBIN 27 pg (27-31); MEAN CORPUSCULAR HGB CONC 30 g/dl (33.0-37.0); MEAN PLATELET VOLUME 10.3 fl (7.4-10.4); MONO # 0.9 K/mm3 (0.1-0.6); MONO % 12.2 % (1.7-9.3); PLATELET COUNT 201 K/mm3 (130-400); RED BLOOD COUNT 4.72 M/mm3 (4.20-5.60); REDCELL DISTRIBUTION WIDTH-CV 14.2 % (11.5-14.5)
[2024-02-13 07:10] LABS: CALCIUM 8.6 mg/dL (8.4-10.2); CREATININE, serum 0.96 mg/dL (0.72-1.25); POTASSIUM 4.7 mmol/L (3.5-4.5)
[2024-02-13 08:14] VITALS: BP 137/70; PULSE 84; TEMP 98.1
--- NOTE | 2024-02-13 08:57 | NUR ---
Patient is alert and oriented, answering all questions appropriately while watching television. Patient has ordered breakfast and wishes to wait for toileting, until after breakfast. VSS and patient wishes to ambulate in the halls after taking morning medications. BLE edema at +1 and urine is noted to be red tinged, no complaints of dyspnea and patient breath sounds are clear in all nails.
--- NOTE | 2024-02-13 08:59 | NUR ---
On 02/12/24, elementary school social worker contacted patient's daughter in law, Elsa and advised of patient's condition and need for Jail Acute Hospitalization, as determined by medical team during rounds. Worker provided option within 100 mile radius of [facility]. Elsa voiced understanding of the above and states she will call her spouse and inform. A referral was given to [facility] states they have submitted insurance Authorization and it could take 2-3 days for the decision. Patient has confusion this date.
[2024-02-13 11:16] VITALS: BP 148/79; PULSE 84; TEMP 97.9
--- NOTE | 2024-02-13 14:36 | NUR ---
Motor Coach Bus Driver spoke with Richard, Clinical Liason at [facility] who advised patient's insurance auth is still pending. Richard met with patient at bedside today. LUCIE contacted [facility] and they have never received an order for CPAP on patient. LUCIE left a message with patient's PCP office to inquire about a sleep study. LUCIE also was contacted by APS LUCIE, Vicky Salazar (ph#[phone]) who advised she went to patient's home and there is a notice to vacate on the door citing residence was unfit for human habitation. Vicky has an open case and met with patient at bedside yesterday, with family on speakerphone.
[2024-02-13 15:32] VITALS: BP 147/81; PULSE 80; TEMP 98.2
--- NOTE | 2024-02-13 16:24 | NUR ---
patient resting in recliner. states no concerns at this time. call light within reach.
[2024-02-13 18:57] VITALS: BP 171/79; PULSE 88; TEMP 98.6
[2024-02-14] VITALS (7 sets, daily range): BP systolic 126–176; BP diastolic 69–84; PULSE 72–86; TEMP 97.6–98.4
--- NOTE | 2024-02-14 02:03 | NUR ---
PT ALERT AND ORIENTED, VSS. VERY PLEASANT MALE WHO SAYS HE FEELING BETTER AND HAPPY TO NO LONGER BE INTUBATED, HOWEVER FEELS THOUGH HE IS "LEARNNING EVERTHING ALL OVER AGAIN". AAT THE START OF SHIFT MENTIONED THAT HE HAD BEEN IN THE RECLINER ALL DAY AND WAS READY TO GET INTO THE BED, THE PT TRANSFERS WELL WITH SBY ASSSIST WITH FWW. MILD SOA WHEN TRANSFERING, TOLERATED/RECOVERED WELL AFTERWARD. CURRENTLY ON 3L NC, BASELINE RA. SHIFT ASSESSMENT COMPLETE MEDICATED PER EMAR. TRIPLE LUME IJ CDI, FLUSHING WELL. NO PAIN REPORTED, DENIES FURTHER NEED AT THIS TIME. CALL LIGHT WITHIN REACH.
[2024-02-14 06:50] LABS: EOS % 0.7 % (0.0-4.0); GRAN % 70.8 % (42.2-75.2); HEMATOCRIT 39.9 % (42.0-52.0); HEMOGLOBIN 11.9 g/dl (13.5-18.0); LYMPH # 0.9 K/mm3 (1.2-3.4); LYMPH % 16.8 % (20.0-51.0); MEAN CELL VOLUME 91 fl (80.0-100.0); MEAN CORPUSCULAR HEMOGLOBIN 27 pg (27-31); MEAN CORPUSCULAR HGB CONC 30 g/dl (33.0-37.0); MEAN PLATELET VOLUME 10.3 fl (7.4-10.4); MONO # 0.6 K/mm3 (0.1-0.6); MONO % 11.3 % (1.7-9.3); PLATELET COUNT 189 K/mm3 (130-400); RED BLOOD COUNT 4.41 M/mm3 (4.20-5.60); REDCELL DISTRIBUTION WIDTH-CV 14.2 % (11.5-14.5)
--- NOTE | 2024-02-14 07:00 | NUR ---
PAITENT ASLEEP, RESTING IN BED. PATIENT BIPAP ON. PATINET AROUSED EASILY TO NAME. CALL LIGHT WITHIN REACH,. PATINET DENIES ANY NEEDS OR COMPLAINTS AT THIS TIME.
[2024-02-14 07:05] LABS: CREATININE, serum 0.88 mg/dL (0.72-1.25); POTASSIUM 4.5 mmol/L (3.5-4.5)
--- NOTE | 2024-02-14 08:46 | NUR ---
Patient is alert and oriented x4 VSS, watching television and RT was in the room during initial assessment. Patient eats breakfast and requests to use restroom. RIJ is intact and dry with presence of scant dried blood. Patient expresses that they are awaiting placement with a care facility for rehabilitation to go home.
--- NOTE | 2024-02-14 09:38 | NUR ---
THIS RN WAS NOTIFIED BY FUNERAL SALES MANAGER THAT PATIENTS URINE HAD A MALODOROUS SMELL, AND HAS DARKENED IN COLOR. PATIENTS URINE COLOR WAS RED/DARK TINGED. UA SENT TO LAB PER MD ORDERS.
[2024-02-14 09:43] LABS: COLLECTION METHOD CLEAN CATCH
[2024-02-14 09:51] LABS: PH 5.5 (5.0-8.5); URINE APPEARANCE CLOUDY (CLEAR/HAZY); URINE BLOOD 3+ (NEGATIVE); URINE COLOR ORANGE (YELLOW); URINE GLUCOSE NEGATIVE (NEGATIVE); URINE KETONE NEGATIVE (NEGATIVE); URINE NITRATE NEGATIVE (NEGATIVE); URINE PROTEIN(semi-quant) 2+ (NEGATIVE)
--- NOTE | 2024-02-14 12:00 | NUR ---
PATIENT AWAKE AND ALERT, SITTING UP IN HIS RECLINER. PATIENT DENIES ANY NEEDS OR COMPLAINTS AT THIS TIME, CALL LIGHT WITHIN REACH.
--- NOTE | 2024-02-14 16:10 | NUR ---
Catcher Helper faxed clinical updates to Richard at [facility]. Insurance Auth still pending. Richard advised patient's plan is only in network with their [place] location. LUCIE updated patient and son, Melecio. Both are in agreement.
--- NOTE | 2024-02-14 18:00 | NUR ---
PATIENT DENEIS ANY NEEDS OR CMOPLAINTS AT THIS TIME. PATIENT IS AWAKE AND ALERT, SITTIGN UP IN RECLINER. CALL LIGHT WTIHIN REACH.
[2024-02-15] MEDS ORDERED: hydrALAZINE 20 MG/ML 1 ML VIAL IV PRN (02:45)
--- NOTE | 2024-02-15 03:26 | NUR ---
Shift assessment completed. Pt is alert and oriented. He is on 3 L O2 via nasal cannula. He denies pain or discomfort at this time. PM medication administered as ordered. Pt denies other needs at this time. Call light left within reach and fall precautions in place.
[2024-02-15 04:05] VITALS: BP 143/86; PULSE 70; TEMP 98.4
[2024-02-15 06:41] LABS: BASO % 0.2 % (0.0-2.0); EOS % 0.7 % (0.0-4.0); GRAN # 3.8 K/mm3 (1.4-6.5); GRAN % 70.2 % (42.2-75.2); HEMATOCRIT 39.3 % (42.0-52.0); HEMOGLOBIN 11.9 g/dl (13.5-18.0); LYMPH % 18.4 % (20.0-51.0); MEAN CELL VOLUME 89 fl (80.0-100.0); MEAN CORPUSCULAR HEMOGLOBIN 27 pg (27-31); MEAN CORPUSCULAR HGB CONC 30 g/dl (33.0-37.0); MEAN PLATELET VOLUME 10.7 fl (7.4-10.4); MONO # 0.6 K/mm3 (0.1-0.6); MONO % 10.1 % (1.7-9.3); PLATELET COUNT 177 K/mm3 (130-400); RED BLOOD COUNT 4.44 M/mm3 (4.20-5.60); REDCELL DISTRIBUTION WIDTH-CV 14.1 % (11.5-14.5)
[2024-02-15 06:52] LABS: CALCIUM 8.5 mg/dL (8.4-10.2); CREATININE, serum 0.87 mg/dL (0.72-1.25); POTASSIUM 4.5 mmol/L (3.5-4.5)
--- NOTE | 2024-02-15 07:05 | NUR ---
PATIENT ASLEEP, RESTING IN BED. BIPAP ON. CALL LIGHT WTIHIN REACH.
[2024-02-15 08:09] VITALS: BP 154/72; PULSE 84; TEMP 98.4
[2024-02-15 11:50] VITALS: BP 141/82; PULSE 67; TEMP 97.4
--- NOTE | 2024-02-15 12:30 | NUR ---
PER NIGHT MULTIMEDIA TECHNICIAN PATIENT IS PAST "FIVE DAY" FOR CENTRAL R JUGLAR LINE. THIS RN SPOKE WITH THE HOSPITALIST REGARDING THIS AND PER THE MD RN MAY REMOVE RIJ IF PIV ACCESS IS PLACED. 2 UNSUCCESFUL ATTEMPTS AT PIV PLACEMENT. PATIENT DENIES ANY NEEDS OR COMPLAINTS AT THIS TIME. RIJ TRIPLE LUMEN PATENT, GOOD BLOOD RETURN AND FLUSHES WELL. CALL LIGHT WITHIN REACH.
[2024-02-15 15:54] VITALS: BP 133/69; PULSE 84; TEMP 97.3
--- NOTE | 2024-02-15 16:00 | NUR ---
PAINET AWAKE AND ALERT, SITTING UP IN THE RECLINER. PATIENT DENIES ANY NEEDS OR COMPLAINTS AT THIS TIME. CALLL LIGHT WITHIN REACH.
[2024-02-15 20:05] VITALS: BP 124/69; PULSE 76; TEMP 98.8
[2024-02-15 22:54] VITALS: BP 129/76; PULSE 74; TEMP 98.3
[2024-02-16 03:16] VITALS: BP 131/68; PULSE 66; TEMP 97.5
[2024-02-16 07:34] LABS: EOS % 0.6 % (0.0-4.0); GRAN # 3.5 K/mm3 (1.4-6.5); GRAN % 65.1 % (42.2-75.2); HEMATOCRIT 39.8 % (42.0-52.0); LYMPH # 1.2 K/mm3 (1.2-3.4); LYMPH % 22.4 % (20.0-51.0); MEAN CELL VOLUME 88 fl (80.0-100.0); MEAN CORPUSCULAR HEMOGLOBIN 27 pg (27-31); MEAN CORPUSCULAR HGB CONC 30 g/dl (33.0-37.0); MEAN PLATELET VOLUME 10.7 fl (7.4-10.4); MONO # 0.6 K/mm3 (0.1-0.6); MONO % 11.5 % (1.7-9.3); PLATELET COUNT 186 K/mm3 (130-400); RED BLOOD COUNT 4.53 M/mm3 (4.20-5.60); REDCELL DISTRIBUTION WIDTH-CV 14.3 % (11.5-14.5)
[2024-02-16 07:51] LABS: CALCIUM 8.4 mg/dL (8.4-10.2); CREATININE, serum 0.82 mg/dL (0.72-1.25); POTASSIUM 4.8 mmol/L (3.5-4.5)
[2024-02-16 08:00] VITALS: BP 128/67; PULSE 70; TEMP 97.9
[2024-02-16] MEDS ORDERED: dexAMETHasone 4 MG TAB PO SCH (09:00)
--- NOTE | 2024-02-16 11:49 | NUR ---
PERIPHERAL IV PLACED TO PATIENT RIGHT HAND BY NURSING SUPERVIOSR. NOW THAT PERIPHERAL IV ACCESS HAS BEEN ESTABLISHED, GAVE VORB FOR PATIENTS RIGHT INTERNAL JUGULAR CENTRAL LINE TO BE REMOVED. TILA IN AGREEMENT TO THIS. PATIENT ASSISTED BACK TO BED FROM RECLINER. PATIENT IS A STANDY BY ASSIST WITH GAIT BELT AND WALKER. CALL LIGHT WITHIN REACH
[2024-02-16 12:02] VITALS: BP 136/79; PULSE 73; TEMP 97.7
--- NOTE | 2024-02-16 12:11 | NUR ---
TILA HAS BLOOD SUGAR CHECKS BID. MD INFORMED PATIENT IS NOT DIABETIC, NO SLIDING SCALE ORDER, AND STEROIDS HAVE BEEN TAPERED DOWN AND ARE PO. PATIENTS BLOOD SUGAR HAS NEVER REACHED GREATER THAN 175. VORB TO DC BLOOD SUGAR CHECKS
--- NOTE | 2024-02-16 13:05 | NUR ---
RIJ REMOVED AT 1248 PER POLICY. PRESSURE HELD UNTIL 1303. GAUZE AND TEGARDERM PLACED. NO CURRENT BLEEDING. PATIENT TOLERATED WELL. PATIENT AWARE FLAT TIME DONE AT 1330. PATIENT LYING FLAT. CALL LIGHT WITHIN REACH.
--- NOTE | 2024-02-16 14:00 | NUR ---
PATIENTS DRESSING TO PREVIOUS CENTRAL SITE IS CDI. PATINET DENIES ANY NEEDS OR COMPLAINTS AT THIS TIME. CALL LIGHT WITHIN REACH.
[2024-02-16 15:40] VITALS: BP 115/66; PULSE 79; TEMP 97.8
--- NOTE | 2024-02-16 17:49 | NUR ---
PATINET AWAKE AND ALERT, SITTING UP IN BED. PATIENT DENIES ANY NEEDS OR COMPLAINTS AT THIS TIME. CALL LIGHT WITHIN REACH. O2 ON.
[2024-02-16 19:04] VITALS: BP 150/84; PULSE 105; TEMP 98.2
[2024-02-16 22:58] VITALS: BP 126/71; PULSE 73; TEMP 98.5
[2024-02-17 03:42] VITALS: BP 129/78; PULSE 76; TEMP 97.5
[2024-02-17 08:14] VITALS: BP 132/74; PULSE 72; TEMP 97.9
--- NOTE | 2024-02-17 09:43 | NUR ---
LUCIE spoke with Richard with [facility] who reported that [facility] does not have bed availablity and [facility] is requesing auth from [employer]. Updated cinicals being faxed for [employer] review. Awaiting decision on auth.
--- NOTE | 2024-02-17 10:10 | NUR ---
RN SUCCESSFUL WITH LAB DRAW FOR MORNING LAB ORDERS. PATIENT TOELRATED WELL.
[2024-02-17 10:34] LABS: EOS # 0.1 K/mm3 (0.0-0.7); EOS % 0.8 % (0.0-4.0); GRAN # 3.6 K/mm3 (1.4-6.5); GRAN % 56.9 % (42.2-75.2); HEMATOCRIT 41.5 % (42.0-52.0); HEMOGLOBIN 12.8 g/dl (13.5-18.0); LYMPH # 1.7 K/mm3 (1.2-3.4); LYMPH % 27.8 % (20.0-51.0); MEAN CELL VOLUME 87 fl (80.0-100.0); MEAN CORPUSCULAR HEMOGLOBIN 27 pg (27-31); MEAN CORPUSCULAR HGB CONC 31 g/dl (33.0-37.0); MEAN PLATELET VOLUME 11.6 fl (7.4-10.4); MONO # 0.9 K/mm3 (0.1-0.6); MONO % 14.2 % (1.7-9.3); PLATELET COUNT 191 K/mm3 (130-400); RED BLOOD COUNT 4.76 M/mm3 (4.20-5.60); REDCELL DISTRIBUTION WIDTH-CV 14.2 % (11.5-14.5)
[2024-02-17 11:16] LABS: CALCIUM 9.2 mg/dL (8.4-10.2); CREATININE, serum 0.82 mg/dL (0.72-1.25); POTASSIUM 4.8 mmol/L (3.5-4.5)
[2024-02-17 12:18] VITALS: BP 119/69; PULSE 78; TEMP 98.2
[2024-02-17 16:01] VITALS: BP 133/70; PULSE 72; TEMP 98.9
--- NOTE | 2024-02-17 18:00 | NUR ---
PATIENT AWAKE AND ALERT, SITTING UP IN THE RECLINER. CALL LIGHT WITHIN REACH, O2 NC AT 2L. PATIENT DENIES ANY NEEEDS OR COMPLAINTS AT THIS TIME.
[2024-02-17 20:20] VITALS: BP 153/81; PULSE 69; TEMP 98.6
[2024-02-18 00:17] VITALS: BP 146/82; PULSE 86; TEMP 98.4
[2024-02-18 04:54] VITALS: BP 128/63; PULSE 90; TEMP 98.5
--- NOTE | 2024-02-18 05:08 | NUR ---
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 DENIES PAIN AT THIS TIME. SHIFT ASSESSMENT COMPLETE, MEDICATED PER EMAR. VERY PLEASANT AND LAURY HISTORIAN AWAITING PLACEMENT. INT TO R HAND PATENT. DENIES FURTHER NEED AT THIS TIME. CALL LIGHT WITHIN REACH.
[2024-02-18 07:34] LABS: EOS % 0.4 % (0.0-4.0); GRAN # 3.8 K/mm3 (1.4-6.5); HEMATOCRIT 41.8 % (42.0-52.0); HEMOGLOBIN 12.8 g/dl (13.5-18.0); LYMPH # 1.3 K/mm3 (1.2-3.4); LYMPH % 22.8 % (20.0-51.0); MEAN CELL VOLUME 88 fl (80.0-100.0); MEAN CORPUSCULAR HEMOGLOBIN 27 pg (27-31); MEAN CORPUSCULAR HGB CONC 31 g/dl (33.0-37.0); MEAN PLATELET VOLUME 11.2 fl (7.4-10.4); MONO # 0.6 K/mm3 (0.1-0.6); MONO % 10.4 % (1.7-9.3); PLATELET COUNT 164 K/mm3 (130-400); RED BLOOD COUNT 4.77 M/mm3 (4.20-5.60)
[2024-02-18 07:54] LABS: CALCIUM 9.1 mg/dL (8.4-10.2); CREATININE, serum 0.83 mg/dL (0.72-1.25); POTASSIUM 4.5 mmol/L (3.5-4.5)
[2024-02-18 08:37] VITALS: BP 127/70; PULSE 78; TEMP 98.1
--- NOTE | 2024-02-18 09:36 | NUR ---
Patient alert and oriented x4. Shift assessment complete, denies pain or discomfort this morning. Tolerating food and fluids well. Continued to ambulate with assistance at baseline to bathroom and around room. Stable on 2L O2 via nc. Call light within reach, all needs met at this time.
[2024-02-18] MEDS ORDERED: DECADRON 4MG TAB4 MG PO (10:44)
--- NOTE | 2024-02-18 13:47 | NUR ---
Patient transferred to [facility] via EMS. EMS did not check in at nurses station, transfer paperwork not sent with patient. Faxing transfer packet to [facility] at fax number [phone]. Report called to receiving RN. IV discontinued to patient's right hand due to no flush, receiving RN aware.
--- NOTE | 2024-02-18 13:50 | NUR ---
Social work student called [facility] to schedule transportation time to bring patient to [facility]. Social work student notified pt nurse, community health worker, doctor, and nurse marking room supervisor. [facility] picked up patient at 1:00 pm. Discharge plan: [facility]
--- NOTE | 2024-02-18 14:53 | NUR ---
casing worker was notified that [facility] has received authorization from patient's insurance. LUCIE notified patient's nurse, doctor and patient. Pending transfer time. LUCIE StudentStacie, scheduled EMS transfer, see Stacie's note. LUCIE updated Richard with the transfer time. LUCIE faxed discharge orders to Richard. Discharge plan: [facility]
--- NOTE | 2024-02-21 14:13 | NUR ---
LUCIE recieved call from APS worker, Vicky regarding pt's whereabouts. LUCIE provided pt was transferred 02/17 to [facility] in . She verbalized understanding.
== END 2024-02-18 13:10 | disposition short-term general hospital (02) | DRG 208 ==
LOC: COL.ER 13:10 → ICU 15:05 → MEDICAL 15:05
PROVIDERS: Family Medicine; Hospitalist; Internal Medicine Nephrology; Internal Medicine Sleep Medicine; Personal Emergency Response Attendant; Physician Assistant; ADMIT Internal Medicine
PROC: 5A1945Z Respiratory Ventilation, 24-96 Consecutive Hours (ICD-10-PCS; principal; 2024-02-05)
PROC: 02HV33Z Insertion of Infusion Device into Superior Vena Cava, Percutaneous Approach (ICD-10-PCS; 2024-02-05)
PROC: 5A09557 Assistance with Respiratory Ventilation, Greater than 96 Consecutive Hours, Continuous Positive Airway Pressure (ICD-10-PCS; 2024-02-05)
PROC: 0BH17EZ Insertion of Endotracheal Airway into Trachea, Via Natural or Artificial Opening (ICD-10-PCS; 2024-02-06)
DX: J96.02 Acute respiratory failure with hypercapnia (principal); I13.0 Hypertensive heart and chronic kidney disease with heart failure and stage 1 through stage 4 chronic kidney disease, or unspecified chronic kidney disease; E66.2 Morbid (severe) obesity with alveolar hypoventilation; E87.20 Acidosis, unspecified; N17.9 Acute kidney failure, unspecified; I50.30 Unspecified diastolic (congestive) heart failure; Z68.45 Body mass index [BMI] 70 or greater, adult; J96.01 Acute respiratory failure with hypoxia; Z20.822 Contact with and (suspected) exposure to COVID-19; J44.9 Chronic obstructive pulmonary disease, unspecified; N18.31 Chronic kidney disease, stage 3a; E87.5 Hyperkalemia; Z91.199 Patient's noncompliance with other medical treatment and regimen due to unspecified reason; Z79.899 Other long term (current) drug therapy; Z99.81 Dependence on supplemental oxygen; Z88.0 Allergy status to penicillin; Z91.041 Radiographic dye allergy status; Z79.82 Long term (current) use of aspirin; Z79.02 Long term (current) use of antithrombotics/antiplatelets; Z23 Encounter for immunization
CPT/HCPCS: A4314; C1751; J0456; J0692; J0696; J1100; J1200; J1650; J1815; J1940; J2704; J2930; J3010; J7030; J7050; J7060; J8540; Q3014

== ENCOUNTER 2024-04-19 14:34 | Inpatient (IN) | payer BC ==
[~2024-04-19 14:34] MED LIST changes: +ALDACTONE 25MG25 M1 PO; +BREZTRI AEROS10.7 GM IH; +DECADRON 4MG TAB4 MG PO; +KLOR-CON20 MEQ PO
[2024-04-28] MEDS ORDERED: Lidocaine PF 2% (20 MG/ML) 5 ML VIAL ONE (13:12)
== END 2024-04-30 12:32 | DRG 262 ==
LOC: COL.ER 14:34 → ICU 17:01 → MEDICAL 04-27 10:45
PROVIDERS: ADMIT Internal Medicine
PROC: 0JH632Z Insertion of Monitoring Device into Chest Subcutaneous Tissue and Fascia, Percutaneous Approach (ICD-10-PCS; principal; 2024-04-19)
PROC: 5A2204Z Restoration of Cardiac Rhythm, Single (ICD-10-PCS; 2024-04-19)
DX: I48.91 Unspecified atrial fibrillation (principal)
CPT/HCPCS: A4314; C1751; C1764; J2704